=== PATIENT | female | born 1975 | race Asian ===

== ENCOUNTER 2018-03-30 09:19 | Emergency (ER) | payer OTHER ==
[~2018-03-30] VITALS: Ht 170.2 cm; Wt 69.4 kg
[2018-03-30 09:24] VITALS: Ht 170.2 cm; Wt 69.4 kg
[2018-03-30 10:45] VITALS: BP 131/87
== END 2018-03-30 10:58 | disposition home or self-care (01) ==
LOC: ED 09:19
DX: J06.9 Acute upper respiratory infection, unspecified (principal)
CPT/HCPCS: J7613